=== PATIENT | male | born 1975 | race Caucasian/White ===

== ENCOUNTER 2019-10-16 19:48 | Emergency (ER) | payer SELFPAY ==
[2019-10-16 19:50] VITALS: BP 129/87; PULSE 105; RESP 20; TEMP 37.8; O2SAT 99; BMI 25.0
--- NOTE | 2019-10-16 20:04 | XRR_ITS ---
PROCEDURE INFORMATION: Exam: XR Chest, 1 View Exam date and time: 10/16/2019 8:39 PM Age: 44 years old Clinical indication: Cough; Additional info: Cough/congestion TECHNIQUE: Imaging protocol: XR of the chest Views: 1 view. COMPARISON: CR Chest 2 views* [id number] 01/28/2018 1:34 PM FINDINGS: Lungs: No CHF/pulmonary edema. Visible lungs appear essentially clear. Pleural space: No visible pneumothorax. No definite pleural fluid. Heart/Mediastinum: Heart size is within normal limits. Bones/joints: No significant acute finding. XR/XR chest 1V portable [id number] IMPRESSION: 1. Unremarkable single view chest. 2. Other findings discussed above.
--- NOTE | 2019-10-16 20:05 | ECG_ITS ---
Measurements Intervals [place] Rate: 102 P: NC: 0 QRS: 6 QRSD: 101 T: 71 QT: 314 QTc: 410 SINUS TACHYCARDIA INCOMPLETE RIGHT BUNDLE BRANCH BLOCK Compared to ECG 01/28/2018 15:18:19 No significant chnage Electronically Signed On 10-17-2019 9:35:03 CDT by Zandra Helton M.D. [email or web address]
--- NOTE | 2019-10-16 20:06 | W.ED.FEVER ---
HPI - Fever General: Chief Complaint: Fever Stated Complaint: FEVER Time Seen by Provider: 10/16/19 19:50 Source: patient Mode of arrival: EMS Limitations: no limitations History of Present Illness: HPI Narrative: Patient is a 44-year-old male who presents to ED today with complaints of a fever that began today. Patient states his mother checked his temperature and it was 105. Patient states he went to sleep and fever seemed to subside on its own down to 101. He is 100.1 upon arrival. Patient tells me he is having body aches, some upper abdominal pain, chest pain, soreness to neck and lower back, and a frontal headache. He has not been coughing. He does not complain of shortness of breath or difficulty breathing. He has not had any vomiting or diarrhea. No urinary symptoms. Patient states his girlfriend had a fever yesterday. Patient is an IV drug user. He states chest pain does not seem to be affected by position. MD elicited complaint: fever Onset (ago): hour(s) Measured temperature: 105 F Context: sick contacts (reports girlfriend had fever yesterday) Exacerbating factors: nothing Relieving factors: nothing Associated symptoms: Reports abdominal pain, chest pain and headache(s); Deny flank pain, diarrhea, dysuria, extremity pain, nausea or vomiting Treatments prior to arrival fever: none Review of Systems Const: Reports: fever(s) and body aches Eyes: Denies: change in vision, blurry vision, photophobia, floaters or seeing flashes ENMT: Denies: throat pain, enlarged tonsils or odynophagia Card: Reports: chest pain; Denies: palpitations, irregular heart rhythm, edema, swelling of feet/ankles, lightheadedness, syncope, pre-syncope, dyspnea on exertion, orthopnea, leg pain with exertion or acrocyanosis Resp: Denies: dyspnea, productive cough, non-productive cough, hemoptysis or chest congestion GI: Reports: abdominal pain; Denies: nausea, vomiting, hematemesis, heartburn, diarrhea or change in stool character : Denies: flank pain, difficulty urinating, dysuria, urinary frequency or urinary urgency Musc: Reports: neck pain and back pain; Denies: extremity pain, extremity swelling, joint pain or joint swelling Skin/Breast: Denies: rash, skin pain, new lesions or jaundice Neuro: Reports: headache(s); Denies: numbness in extremities, weakness in extremities, sensory changes, lack of coordination, difficulty walking, frequent falls or dizziness PFSH ED PFSH: Social History Smoking and tobacco status: former smoker Physical Exam Const: COMMON NORMALS: no acute distress, average body habitus, patient oriented x3, no limitations, healthy appearing, alert and well nourished ORIENTATION/CONSCIOUSNESS: Yes oriented to person, Yes oriented to place and Yes oriented to time HENMT: COMMON NORMALS: normocephalic, atraumatic, hearing grossly normal bilaterally, external ears normal, EAC's normal, TM's normal bilaterally, Normal external nose present, Normal nasal mucous membranes and turbinates present, moist oral mucous membranes and oropharynx normal HEAD & SCALP: normocephalic and atraumatic FACE & SINUS: normal facial exam and sinuses nontender NOSE: Normal external nose present and Normal nasal mucous membranes and turbinates present EXTERNAL EAR: Yes external ears normal EXTERNAL AUDITORY CANAL: EAC's normal TYMPANIC MEMBRANE: TM's normal bilaterally Eye: COMMON NORMALS: Equal, round and reactive pupils present, EOMs intact bilaterally, conjunctivae normal and no scleral icterus CONJUNCTIVA: Yes conjunctivae normal PUPIL: Yes Equal, round and reactive pupils present Neck/C-Spine: COMMON NORMALS: full ROM, no lymphadenopathy and no meningeal signs CERVICAL SPINE: Yes Paracervical muscle tenderness bilateral Chest: COMMONS NORMALS: normal inspection of the chest and normal palpation of entire chest wall Resp: COMMON NORMALS: normal respiratory effort and clear to auscultation bilaterally AUSCULTATION: clear to auscultation bilaterally Cardio: COMMON NORMALS: regular rhythm RATE: tachycardic RHYTHM: regular rhythm GI: COMMON NORMALS: Normal to inspection, nondistended, normoactive bowel sounds present, Soft to palpation, No hepatosplenomegaly present and no masses PALPATION: Yes Soft to palpation, Yes Tenderness to palpation present (GI) (mild epigastric) and Yes No hepatosplenomegaly present : COMMON NORMALS: Yes no CVA tenderness BLADDER/KIDNEY EXAM: Yes no CVA tenderness Back/Pelvis: COMMON NORMALS: no CVA tenderness Extremity: COMMON NORMALS: normal to inspection and full ROM Neuro: WOODY COMA SCALE: document GCS findings [place] coma scale eye opening: Spontaneous [place] coma scale verbal response: Orientated [place] coma scale motor response: Obey commands [place] coma scale total score: 15 COMMON NORMALS: patient oriented x3, CN's II-XII intact bilaterally, moves all extremities, no focal motor deficits and no sensory deficits noted SENSORIUM/ORIENTATION: Yes alert, Yes oriented to person, Yes oriented to place and Yes oriented to time MENINGEAL SIGNS: Yes no meningeal signs Skin: COMMON NORMALS: no rashes or lesions noted GENERAL SKIN EXAM: no rashes or lesions noted Course Vital Signs: Vital signs: Vital Signs Temperature 99.4 F 10/16/19 21:59 Pulse Rate 99 10/16/19 21:59 Respiratory Rate 16 10/16/19 21:59 Blood Pressure 129/87 10/16/19 19:50 Pulse Oximetry 96 10/16/19 21:59 MDM - Fever MDM Narrative: Medical decision making narrative: Patient's vitals are now normal after treating patient's fever with Tylenol. He states he feels much better now stating he no longer has a headache, neck pain, back pain, or chest pains. He is complaining of some mild epigastric pain stating he is hungry and has not ate all day-requesting crackers. Patient's labs overall are non-concerning. He has elevated LFTs most likely from his hepatitis C but due to upper abdominal pain will go ahead and obtain US of gallbladder-this was negative. At this time I have no suspicion for sepsis, endocarditis, pneumonia, UTI, bacteremia, cholecystitis, meningitis, or any other emergent process at this time. This could possibly be cotton fever related to his IV drug use (especially since he reports his girlfriend had very similar symptoms yesterday that were short lasting). Strict return to ED precautions given. Again patient states he feels better and would like to go home. Lab Data: Labs: Lab Results 10/16/19 10/16/19 10/16/19 Range/Units 20:25 20:40 20:40 WBC (4.0-10.0) 10^3/ uL RBC (4.1-5.3) 10^6/u L Hgb (11.7-16.6) g/dL Hct (42.0-52.0) % MCV (80-94) fL MCH (28.0-34.0) pg MCHC (30.0-36.0) g/dL RDW (12.1-15.1) % Plt Count (130-400) 10^3/c mm MPV (7.4-10.4) fL Neut % (Auto) % Lymph % (Auto) % [place] % (Auto) % Eos % (Auto) % Baso % (Auto) % Neut # (Auto) (1.8-7.7) 10^3/u L Lymph # (Auto) (0.8-4.8) 10^3/u L [place] # (Auto) (0.2-0.9) 10^3/u L Eos # (Auto) (0.0-0.8) 10^3/u L Baso # (Auto) (0.0-0.1) 10^3/u L Nucleated RBC % (a uto) % Nucleated RBCs # /100WBC Sodium (136-145) mmol/L Potassium (3.5-5.1) mmol/L Chloride (98-107) mmol/L Carbon Dioxide (22-29) mmol/L Anion Gap (5-19) BUN (6-20) mg/dL Creatinine (0.7-1.2) mg/dL GFR Calculation (90-130) mL/min Glucose (65-115) mg/dL Calculated Osmolal ity (285-295) mOsm/k g Lactate (0.5-2.2) mmol/L Calcium (8.5-10.5) mg/dL Total Bilirubin (0.15-1.2) mg/dL AST (0-40) U/L ALT (0-41) U/L Alkaline Phosphata se (40-130) IU/L Troponin T Baselin e (0-15) ng/mL C-Reactive Protein (0.0-4.9) mg/L Total Protein (6.6-8.7) g/dL Albumin (3.5-5.2) g/dL Globulin (1.3-4.6) g/dL Lipase (13-60) U/L Urine Color Yellow (Yellow) Urine Appearance Clear (CLEAR) Urine pH 8 H (5-7) Ur Specific Gravit y 1.010 (1.005-1.030) Urine Protein Neg (Negative) Urine Glucose (UA) Norm (Normal) Urine Ketones Negative (Negative) Urine Blood Neg (Negative) Urine Nitrate Negative (Negative) Urine Bilirubin Neg (NEGATIVE) Prot Sulfosalicyli c Acd Negative (Negative) Urine Urobilinogen 4 H (Negative) mg/dL Ur Leukocyte Sharita ase Negative (Negative) Urine Opiates Scre en Positive H (Negative) ng/mL Ur Barbiturates Sc reen Negative (Negative) ng/mL Ur Phencyclidine S crn Negative (Negative) ng/mL Ur Amphetamines Sc reen Positive H (Negative) ng/mL U Benzodiazepines Scrn Negative (Negative) ng/mL Urine Cocaine Scre en Negative (Negative) ng/mL U Marijuana (THC) Screen Negative (Negative) ng/mL Influenza Type A A g Negative (Negative) Influenza Type B A g Negative (Negative) 10/16/19 10/16/19 10/16/19 Range/Units 21:03 21:03 21:03 WBC 5.1 (4.0-10.0) 10^3/ uL RBC 4.30 (4.1-5.3) 10^6/u L Hgb 13.8 (11.7-16.6) g/dL Hct 39.8 L (42.0-52.0) % MCV 92.6 (80-94) fL MCH 32.1 (28.0-34.0) pg MCHC 34.7 (30.0-36.0) g/dL RDW 12.3 (12.1-15.1) % Plt Count 199 (130-400) 10^3/c mm MPV 8.1 (7.4-10.4) fL Neut % (Auto) 82.4 % Lymph % (Auto) 7.6 % [place] % (Auto) 8.6 % Eos % (Auto) 0.6 % Baso % (Auto) 0.6 % Neut # (Auto) 4.2 (1.8-7.7) 10^3/u L Lymph # (Auto) 0.4 L (0.8-4.8) 10^3/u L [place] # (Auto) 0.4 (0.2-0.9) 10^3/u L Eos # (Auto) 0.0 (0.0-0.8) 10^3/u L Baso # (Auto) 0.0 (0.0-0.1) 10^3/u L Nucleated RBC % (a uto) 0 % Nucleated RBCs # 0.0 /100WBC Sodium 135 L (136-145) mmol/L Potassium 4.3 (3.5-5.1) mmol/L Chloride 100 (98-107) mmol/L Carbon Dioxide 24 (22-29) mmol/L Anion Gap 15.3 (5-19) BUN 9 (6-20) mg/dL Creatinine 0.6 L (0.7-1.2) mg/dL GFR Calculation 145.0 H (90-130) mL/min Glucose 104 (65-115) mg/dL Calculated Osmolal ity 276 L (285-295) mOsm/k g Lactate 1.1 (0.5-2.2) mmol/L Calcium 8.1 L (8.5-10.5) mg/dL Total Bilirubin 0.7 (0.15-1.2) mg/dL AST 229 H (0-40) U/L ALT 170 H (0-41) U/L Alkaline Phosphata se 180 H (40-130) IU/L Troponin T Baselin e (0-15) ng/mL C-Reactive Protein 23.3 H (0.0-4.9) mg/L Total Protein 6.3 L (6.6-8.7) g/dL Albumin 3.6 (3.5-5.2) g/dL Globulin 2.7 (1.3-4.6) g/dL Lipase 22 (13-60) U/L Urine Color (Yellow) Urine Appearance (CLEAR) Urine pH (5-7) Ur Specific Gravit y (1.005-1.030) Urine Protein (Negative) Urine Glucose (UA) (Normal) Urine Ketones (Negative) Urine Blood (Negative) Urine Nitrate (Negative) Urine Bilirubin (NEGATIVE) Prot Sulfosalicyli c Acd (Negative) Urine Urobilinogen (Negative) mg/dL Ur Leukocyte Sharita ase (Negative) Urine Opiates Scre en (Negative) ng/mL Ur Barbiturates Sc reen (Negative) ng/mL Ur Phencyclidine S crn (Negative) ng/mL Ur Amphetamines Sc reen (Negative) ng/mL U Benzodiazepines Scrn (Negative) ng/mL Urine Cocaine Scre en (Negative) ng/mL U Marijuana (THC) Screen (Negative) ng/mL Influenza Type A A g (Negative) Influenza Type B A g (Negative) 10/16/19 Range/Units 21:07 WBC (4.0-10.0) 10^3/ uL RBC (4.1-5.3) 10^6/u L Hgb (11.7-16.6) g/dL Hct (42.0-52.0) % MCV (80-94) fL MCH (28.0-34.0) pg MCHC (30.0-36.0) g/dL RDW (12.1-15.1) % Plt Count (130-400) 10^3/c mm MPV (7.4-10.4) fL Neut % (Auto) % Lymph % (Auto) % [place] % (Auto) % Eos % (Auto) % Baso % (Auto) % Neut # (Auto) (1.8-7.7) 10^3/u L Lymph # (Auto) (0.8-4.8) 10^3/u L [place] # (Auto) (0.2-0.9) 10^3/u L Eos # (Auto) (0.0-0.8) 10^3/u L Baso # (Auto) (0.0-0.1) 10^3/u L Nucleated RBC % (a uto) % Nucleated RBCs # /100WBC Sodium (136-145) mmol/L Potassium (3.5-5.1) mmol/L Chloride (98-107) mmol/L Carbon Dioxide (22-29) mmol/L Anion Gap (5-19) BUN (6-20) mg/dL Creatinine (0.7-1.2) mg/dL GFR Calculation (90-130) mL/min Glucose (65-115) mg/dL Calculated Osmolal ity (285-295) mOsm/k g Lactate (0.5-2.2) mmol/L Calcium (8.5-10.5) mg/dL Total Bilirubin (0.15-1.2) mg/dL AST (0-40) U/L ALT (0-41) U/L Alkaline Phosphata se (40-130) IU/L Troponin T Baselin e 6 (0-15) ng/mL C-Reactive Protein (0.0-4.9) mg/L Total Protein (6.6-8.7) g/dL Albumin (3.5-5.2) g/dL Globulin (1.3-4.6) g/dL Lipase (13-60) U/L Urine Color (Yellow) Urine Appearance (CLEAR) Urine pH (5-7) Ur Specific Gravit y (1.005-1.030) Urine Protein (Negative) Urine Glucose (UA) (Normal) Urine Ketones (Negative) Urine Blood (Negative) Urine Nitrate (Negative) Urine Bilirubin (NEGATIVE) Prot Sulfosalicyli c Acd (Negative) Urine Urobilinogen (Negative) mg/dL Ur Leukocyte Shar[place] ase (Negative) Urine Opiates Scre en (Negative) ng/mL Ur Barbiturates Sc reen (Negative) ng/mL Ur Phencyclidine S crn (Negative) ng/mL Ur Amphetamines Sc reen (Negative) ng/mL U Benzodiazepines Scrn (Negative) ng/mL Urine Cocaine Scre en (Negative) ng/mL U Marijuana (THC) Screen (Negative) ng/mL Influenza Type A A g (Negative) Influenza Type B A g (Negative) Imaging Data^: US gallbladder: My impression: Per Ralph Torres clin tech-normal gallbladder study Discharge Plan Discharge Patient Disposition: Home, Self-Care Clinical Impression: Polysubstance abuse, Fever of unknown origin Hepatitis C Qualifiers: Viral hepatitis chronicity: chronic Hepatic coma status: without hepatic coma Qualified Code(s): B18.2 - Chronic viral hepatitis C Condition: Stable Discharge Orders: Discharge Order (Routine); Ordered 10/16/19 Ordered By: Gilma To Discharge Diet: Usual diet Discharge Activity: Increase activity as tolerated Patient Instructions: Cotton Fever, Fever - Adult Activity Restrictions/Additional Instructions: You may continue to take Tylenol and/or Ibuprofen to treat the fevers and body aches. You need to return to the emergency department immediately for worsening or uncontrollable fevers, worsening abdominal pain, chest pain, difficulty breathing, severe neck pain/stiffness, headache, or any other concerns you may have. Coding Level of Care Code ED Urology Physician Assistant for Terry Fwd Exam Comprehensive
[2019-10-16] MEDS: acetaminophen 500 mg Tablet 1000 MG PO (20:21)
[2019-10-16] MEDS: sodium chloride 0.9% 1,000 ML 999 ML IV (20:22)
[2019-10-16 21:05] LABS: Add Urine Microscopic? NO
[2019-10-16 21:08] LABS: Influenza A by IFA Negative (Negative); Influenza B by IFA Negative (Negative)
[2019-10-16 21:14] LABS: Basophils % 0.6 %; Eosinophils % 0.6 %; Hematocrit 39.8 % (42.0-52.0); Hemoglobin 13.8 g/dL (11.7-16.6); Lymphocytes # 0.4 10^3/uL (0.8-4.8); Lymphocytes % 7.6 %; Mean Corpuscular HGB Conc 34.7 g/dL (30.0-36.0); Mean Corpuscular Hemoglobin 32.1 pg (28.0-34.0); Mean Corpuscular Volume 92.6 fL (80-94); Mean Platelet Volume 8.1 fL (7.4-10.4); Monocytes # 0.4 10^3/uL (0.2-0.9); Monocytes % 8.6 %; Neutrophils # 4.2 10^3/uL (1.8-7.7); Neutrophils % 82.4 %; Nucleated Red Blood Cells % 0 %; Platelet Count 199 10^3/cmm (130-400); Red Cell Distribution Width 12.3 % (12.1-15.1); White Blood Count 5.1 10^3/uL (4.0-10.0)
[2019-10-16 21:18] LABS: Amphetamines Screen Urine Positive (Negative); Barbiturates Screen Urine Negative (Negative); Benzodiazepines Screen Urine Negative (Negative); Cocaine Screen Urine Negative (Negative); Opiate Screen Urine Positive (Negative); PCP Screen Urine Negative (Negative); THC Screen Urine Negative (Negative)
[2019-10-16 21:27] LABS: Bilirubin Urine Neg (NEGATIVE); Blood Urine Neg (Negative); Glucose Urine UA Norm (Normal); Ketones Urine Negative (Negative); Leukocyte Esterase Urine Negative (Negative); Nitrate Urine Negative (Negative); Protein Urine Neg (Negative); Sulfosalicylic Acid Urine Negative (Negative); Urine Appearance Clear (CLEAR); Urine Color Yellow (Yellow); Urobilinogen Urine 4 mg/dL (Negative); pH Urine 8 (5-7)
[2019-10-16 21:33] LABS: Alanine Aminotransferase 170 U/L (0-41); Albumin Level 3.6 g/dL (3.5-5.2); Alkaline Phosphatase 180 IU/L (40-130); Anion Gap 15.3 (5-19); Blood Urea Nitrogen 9 mg/dL (6-20); C Reactive Protein 23.3 mg/L (0.0-4.9); Calcium 8.1 mg/dL (8.5-10.5); Carbon Dioxide 24 mmol/L (22-29); Chloride 100 mmol/L (98-107); Globulin 2.7 g/dL (1.3-4.6); Glucose 104 mg/dL (65-115); Lipase 22 U/L (13-60); Osmolality Calculated 276 mOsm/kg (285-295); Potassium 4.3 mmol/L (3.5-5.1); Sodium 135 mmol/L (136-145); Total Bilirubin 0.7 mg/dL (0.15-1.2); Total Protein 6.3 g/dL (6.6-8.7)
[2019-10-16 21:34] LABS: Lactate (Lactic Acid level) 1.1 mmol/L (0.5-2.2)
[2019-10-16 21:35] LABS: Troponin(5th) Baseline 6 ng/mL (0-15)
[2019-10-16 21:46] LABS: Aspartate Amino Transferase 229 U/L (0-40)
[2019-10-16 21:59] VITALS: PULSE 99; RESP 16; TEMP 37.4; O2SAT 96
--- NOTE | 2019-10-16 22:00 | PC.NURSE ---
oral temp 99.4
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
[2019-10-16 22:55] VITALS: BP 141/93; PULSE 96; RESP 16; O2SAT 97
== END 2019-10-16 22:56 | disposition home or self-care (01) ==
PROVIDERS: Emergency Provider Physician Assistant
DX: R50.9 Fever, unspecified (principal); F19.10 Other psychoactive substance abuse, uncomplicated; B18.2 Chronic viral hepatitis C; Z87.891 Personal history of nicotine dependence
CPT/HCPCS: 12345; 36415; 71045; 76705; 80053; 80306; 81003; 83605; 83690; 84484; 85025; 86140; 87040; 87804; 93005; 96360; 99283; 99284; A9270; J7030

== ENCOUNTER 2019-10-17 15:03 | Emergency (ER) | payer SELFPAY ==
[2019-10-17 15:13] VITALS: BP 123/87; PULSE 101; RESP 16; TEMP 36.7; O2SAT 97
== END 2019-10-17 15:21 | disposition left against medical advice (07) ==
LOC: ER 15:24
PROVIDERS: Emergency Provider Emergency Medicine
DX: Z53.21 Procedure and treatment not carried out due to patient leaving prior to being seen by health care provider (principal)
CPT/HCPCS: 99281

== ENCOUNTER → 2019-10-26 16:27 | Outpatient (BNVA) | payer SELFPAY | PROVIDERS: Visit Provider Internal Medicine | DX: B19.20 Unspecified viral hepatitis C without hepatic coma (principal); B18.2 Chronic viral hepatitis C | CPT/HCPCS: 80053; 85025; 87522 ==

== ENCOUNTER 2020-12-28 21:37 | Emergency (ER) | payer SELFPAY ==
[2020-12-28 21:39] VITALS: BP 119/98; PULSE 101; RESP 16; TEMP 37; O2SAT 97; BMI 25.0
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
--- NOTE | 2020-12-28 21:46 | ECG_ITS ---
[facility] ED Test Date: 2020-12-28 Pat Name: Malcom Flores Department: Room: Gender: Male Percher: : 1975 Requested By: Jaime Faustin Order Number: [id number] Debra MD: Zandra Helton M.D. Measurements Intervals [place]ow Rate: 94 P: 79 WA: 152 QRS: 38 QRSD: 114 T: 74 QT: 354 QTc: 443 Interpretive Statements SINUS RHYTHM INCOMPLETE RIGHT BUNDLE BRANCH BLOCK [90+ ms QRS DURATION, TERMINAL R IN V1/V2, 40+ ms S IN I/aVL/V4/V5/V6] Compared to ECG 10/16/2019 20:14:36 Sinus tachycardia no longer present Electronically Signed On 01-01-2021 0:19:27 CDT by Zandra Helton M.D. [id number]
[2020-12-28] MEDS: iohexol 300 mg/mL 100 mL Btl IV (22:07)
[2020-12-28] MEDS: morphine 4 mg/mL SDV 1 mL IVP (22:34)
[2020-12-28] MEDS: ondansetron 2 mg/ML SDV 2 mL 4 MG IVP (22:34)
[2020-12-28] MEDS: LORazepam 2 mg/mL INJ 1 mL 1 MG IVP (22:34)
[2020-12-28] MEDS: sodium chloride 0.9% 1,000 ML 999 ML IV (22:39)
[2020-12-28 22:50] VITALS: BP 118/81; PULSE 96; RESP 20; O2SAT 100
[2020-12-28 22:51] LABS: Basophils # 0.1 10^3/uL (0.0-0.1); Basophils % 0.5 %; Eosinophils # 0.1 10^3/uL (0.0-0.8); Eosinophils % 0.6 %; Hematocrit 37.3 % (42.0-52.0); Lymphocytes # 1.2 10^3/uL (0.8-4.8); Lymphocytes % 12.1 %; Mean Corpuscular HGB Conc 34.9 g/dL (30.0-36.0); Mean Corpuscular Hemoglobin 31.3 pg (28.0-34.0); Mean Corpuscular Volume 89.9 fL (80-94); Mean Platelet Volume 8.2 fL (7.4-10.4); Monocytes # 0.8 10^3/uL (0.2-0.9); Neutrophils # 7.66 10^3/uL (1.8-7.7); Neutrophils % 78.5 %; Nucleated Red Blood Cells % 0 %; Platelet Count 232 10^3/cmm (130-400); Red Blood Count 4.15 10^6/uL (4.1-5.3); Red Cell Distribution Width 12.1 % (12.1-15.1); White Blood Count 9.8 10^3/uL (4.0-10.0)
[2020-12-28 23:15] LABS: Alanine Aminotransferase 20 U/L (0-41); Albumin Level 3.7 g/dL (3.5-5.2); Alkaline Phosphatase 80 IU/L (40-130); Anion Gap 11.4 (5-19); Aspartate Amino Transferase 20 U/L (0-40); Blood Urea Nitrogen 13 mg/dL (6-20); Calcium 7.4 mg/dL (8.5-10.5); Carbon Dioxide 24 mmol/L (22-29); Chloride 104 mmol/L (98-107); Globulin 2.2 g/dL (1.3-4.6); Glomerular Filtration Rate 103.6 mL/min (90-130); Glucose 92 mg/dL (65-115); Osmolality Calculated 282 mOsm/kg (285-295); Potassium 3.4 mmol/L (3.5-5.1); Sodium 136 mmol/L (136-145); Total Bilirubin 0.6 mg/dL (0.15-1.2); Total Protein 5.9 g/dL (6.6-8.7)
[2020-12-28 23:17] VITALS: BP 127/78; PULSE 96; RESP 17; O2SAT 100
[2020-12-28 23:52] VITALS: BP 119/81; PULSE 94; RESP 18; O2SAT 100
== END 2020-12-28 23:55 | disposition home or self-care (01) ==
PROVIDERS: Emergency Provider Emergency Medicine
DX: S13.4XXA Sprain of ligaments of cervical spine, initial encounter (principal); Z87.891 Personal history of nicotine dependence; V86.59XA Driver of other special all-terrain or other off-road motor vehicle injured in nontraffic accident, initial encounter; Y93.89 Activity, other specified
CPT/HCPCS: 70450; 71260; 72125; 74177; 80053; 85025; 93005; 96361; 96374; 96375; 99284; J2060; J2270; J2405; J7030; Q9967

== ENCOUNTER → 2021-05-31 15:14 | Outpatient (BNVA) | payer SELFPAY | PROVIDERS: Visit Provider Internal Medicine | DX: B19.20 Unspecified viral hepatitis C without hepatic coma (principal); B18.2 Chronic viral hepatitis C | CPT/HCPCS: 80053; 82105; 87522 ==

== ENCOUNTER 2025-03-10 16:18 | Emergency (ER) | payer MEDICAID, SELFPAY ==
[2025-03-10 16:35] VITALS: BP 147/83; PULSE 105; RESP 18; O2SAT 98
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
[2025-03-10] MEDS: orphenadrine 30 mg/mL Inj 2 mL 60 MG IM (18:07)
== END 2025-03-10 18:43 | disposition home or self-care (01) ==
PROVIDERS: Emergency Provider Physician Assistant
DX: S30.0XXA Contusion of lower back and pelvis, initial encounter (principal); T14.8XXA Other injury of unspecified body region, initial encounter; V86.95XA Unspecified occupant of 3- or 4- wheeled all-terrain vehicle (ATV) injured in nontraffic accident, initial encounter
CPT/HCPCS: 70450; 72125; 74176; 96372; 99284; J1885; J2360